=== PATIENT | female | born 1990 | race Two or more races ===

== ENCOUNTER 2018-10-31 03:34 | Day surgery (SDC) | payer SELFPAY ==
[2018-10-31] MEDS ORDERED: Sodium Chloride 0.9% 1,000 ML IV ONE (04:01)
[2018-10-31] MEDS ORDERED: Ondansetron 4 MG/2 ML SDV IVPUSH ONE (04:01)
--- NOTE | 2018-10-31 04:03 | EDM.PDOC ---
ED HPI GENERAL MEDICAL PROBLEM - General Chief Complaint: Abdominal Pain Stated Complaint: LOWER RIGHT ABDOMINAL PAIN Time Seen by Provider: 10/31/18 04:02 Source of Information: Reports: Patient - History of Present Illness INITIAL COMMENTS - FREE TEXT/NARRATIVE: HISTORY AND PHYSICAL: History of present illness: [Patient presents with abdominal pain since 10 PM right lower quadrant 7 out of 10 nonradiating associated with nausea no fever chills or sweats ] Review of systems: As per history of present illness and below otherwise all systems reviewed and negative. Past medical history: As per history of present illness and as reviewed below otherwise noncontributory. Surgical history: As per history of present illness and as reviewed below otherwise noncontributory. Social history: No reported history of drug or alcohol abuse. Family history: As per history of present illness and as reviewed below otherwise noncontributory. Physical exam: HEENT: Atraumatic, normocephalic, pupils reactive, negative for conjunctival pallor or scleral icterus, mucous membranes moist, throat clear, neck supple, nontender, trachea midline. Lungs: Clear to auscultation, breath sounds equal bilaterally, chest nontender. Heart: S1S2, regular, negative for clicks, rubs, or JVD. Abdomen: Soft, nondistended, nontender. Negative for masses or hepatosplenomegaly. Negative for costovertebral tenderness. Pelvis: Stable nontender. 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: Deferred. Rectal: Deferred. Extremities: Atraumatic, negative for cords or calf pain. Neurovascular unremarkable. Neuro: Awake, alert, oriented. Cranial nerves II through XII unremarkable. Cerebellum unremarkable. Motor and sensory unremarkable throughout. Exam nonfocal. Diagnostics: [CBC CMP UA hCG CT abdomen pelvis with contrast ] Therapeutics: [Trish saline Toradol 30 mg IV Morphine 2 mg IV mefoxin [address] Miller is consult to deal be in to see the patient Patient to be kept nothing by mouth ] Impression: [ abdominal pain ] Appendix 1 cm with no inflammatory change Definitive disposition and diagnosis as appropriate pending reevaluation and review of above. abdomen Pain Score (Numeric/FACES): 1 - Related Data Allergies Allergy/AdvReac Type Severity Reaction Status Date / Time No Known Allergies Allergy Verified 10/31/18 03:43 Home Meds: Home Meds . [No Known Home Meds] 10/31/18 [History] Past Medical History - Past Health History Medical/Surgical History: Denies Medical/Surgical History [employer] History: Reports: - Infectious Disease History Infectious Disease History: Reports: Chicken Pox Social & Family History - Family History Family Medical History: Noncontributory - Tobacco Use Smoking Status *Q: Never Smoker Second Hand Smoke Exposure: No - Caffeine Use Caffeine Use: Reports: None - Recreational Drug Use Recreational Drug Use: No ED ROS GENERAL - Review of Systems Review Of Systems: See Below ED EXAM, GENERAL - Physical Exam Exam: See Below Course - Vital Signs Last Recorded V/S: Last Vital Signs Temp 96.8 F 10/31/18 05:30 Pulse 77 10/31/18 05:30 Resp 18 10/31/18 05:30 BP 109/61 10/31/18 05:30 Pulse Ox 97 10/31/18 05:30 - Orders/Labs/Meds Orders: Active Orders 24 hr Category Date Time Status CULTURE BLOOD [BC] Stat Lab 10/31/18 04:13 Received CULTURE BLOOD [BC] Stat Lab 10/31/18 04:26 Received Sodium Chloride 0.9% [Normal Saline] 1,000 ml Med 10/31/18 05:45 Active IV STAT cefOXitin [Mefoxin in Dextrose,Iso-Osm 1 GM/50 ML] 1 gm Med 10/31/18 05:55 Active Premix Bag 1 bag IV ONETIME Blood Culture x2 Reflex Set [OM.PC] Stat Oth 10/31/18 04:01 Ordered Medication Orders Sodium Chloride (Normal Saline) 1,000 mls @ 125 mls/hr IV STAT LYNNE Last Admin: 10/31/18 06:01 Dose: 125 mls/hr Cefoxitin Sodium 1 gm/ Premix 50 mls @ 100 mls/hr IV ONETIME ONE Stop: 10/31/18 06:24 Last Admin: 10/31/18 06:02 Dose: 100 mls/hr Labs: Laboratory Tests 10/31/18 10/31/18 10/31/18 Range/Units 03:45 04:01 04:13 WBC 14.31 H (4.0-11.0) K/uL RBC 4.46 (4.30-5.90) M/uL Hgb 13.5 (12.0-16.0) g/dL Hct 39.5 (36.0-46.0) % MCV 88.6 (80.0-98.0) fL MCH 30.3 (27.0-32.0) pg MCHC 34.2 (31.0-37.0) g/dL RDW Std Deviation 42.1 (28.0-62.0) fl RDW Coeff of Daniella 13 (11.0-15.0) % Plt Count 221 (150-400) K/uL MPV 10.10 (7.40-12.00) fL Neut % (Auto) 82.9 H (48.0-80.0) % Lymph % (Auto) 10.5 L (16.0-40.0) % [place] % (Auto) 6.1 (0.0-15.0) % Eos % (Auto) 0.4 (0.0-7.0) % Baso % (Auto) 0.1 (0.0-1.5) % Neut # (Auto) 11.9 H (1.4-5.7) K/uL Lymph # (Auto) 1.5 (0.6-2.4) K/uL [place] # (Auto) 0.9 H (0.0-0.8) K/uL Eos # (Auto) 0.1 (0.0-0.7) K/uL Baso # (Auto) 0.0 (0.0-0.1) K/uL Nucleated RBC % 0.0 /100WBC Nucleated RBCs # 0 K/uL Sodium (136-145) mmol/L Potassium (3.5-5.1) mmol/L Chloride (98-107) mmol/L Carbon Dioxide (21.0-32.0) mmol/L BUN (7.0-18.0) mg/dL Creatinine (0.6-1.0) mg/dL Est Cr Clr Drug Dosing mL/min Estimated GFR (MDRD) ml/min Glucose (74-106) mg/dL Calcium (8.5-10.1) mg/dL Total Bilirubin (0.2-1.0) mg/dL AST (15-37) IU/L ALT (14-63) IU/L Alkaline Phosphatase (46-116) U/L Total Protein (6.4-8.2) g/dL Albumin (3.4-5.0) g/dL Globulin (2.6-4.0) g/dL Albumin/Globulin Ratio (0.9-1.6) Lipase (73-393) U/L Urine Color DARK YELLOW Urine Appearance SLT CLOUDY Urine pH 6.0 (5.0-8.0) Ur Specific [place] 1.025 (1.001-1.035) Urine Protein NEGATIVE (NEGATIVE) mg/dL Urine Glucose (UA) NEGATIVE (NEGATIVE) mg/dL Urine Ketones NEGATIVE (NEGATIVE) mg/dL Urine Occult Blood TRACE-INTACT H (NEGATIVE) Urine Nitrite NEGATIVE (NEGATIVE) Urine Bilirubin NEGATIVE (NEGATIVE) Urine Urobilinogen 0.2 (<2.0) EU/dL Ur Leukocyte Esterase SMALL H (NEGATIVE) Urine RBC 0-2 (0-2/HPF) Urine WBC 3-5 (0-5/HPF) Ur Epithelial Cells MODERATE (NONE-FEW) Urine Bacteria FEW (NEGATIVE) Urine HCG, Qual NEGATIVE (NEGATIVE) 10/31/18 Range/Units 04:13 WBC (4.0-11.0) K/uL RBC (4.30-5.90) M/uL Hgb (12.0-16.0) g/dL Hct (36.0-46.0) % MCV (80.0-98.0) fL MCH (27.0-32.0) pg MCHC (31.0-37.0) g/dL RDW Std Deviation (28.0-62.0) fl RDW Coeff of Daniella (11.0-15.0) % Plt Count (150-400) K/uL MPV (7.40-12.00) fL Neut % (Auto) (48.0-80.0) % Lymph % (Auto) (16.0-40.0) % [place] % (Auto) (0.0-15.0) % Eos % (Auto) (0.0-7.0) % Baso % (Auto) (0.0-1.5) % Neut # (Auto) (1.4-5.7) K/uL Lymph # (Auto) (0.6-2.4) K/uL [place] # (Auto) (0.0-0.8) K/uL Eos # (Auto) (0.0-0.7) K/uL Baso # (Auto) (0.0-0.1) K/uL Nucleated RBC % /100WBC Nucleated RBCs # K/uL Sodium 139 (136-145) mmol/L Potassium 3.6 (3.5-5.1) mmol/L Chloride 105 (98-107) mmol/L Carbon Dioxide 22.5 (21.0-32.0) mmol/L BUN 17 (7.0-18.0) mg/dL Creatinine 0.7 (0.6-1.0) mg/dL Est Cr Clr Drug Dosing 85.94 mL/min Estimated GFR (MDRD) > 60.0 ml/min Glucose 114 H (74-106) mg/dL Calcium 8.5 (8.5-10.1) mg/dL Total Bilirubin 0.7 (0.2-1.0) mg/dL AST 19 (15-37) IU/L ALT 48 (14-63) IU/L Alkaline Phosphatase 83 (46-116) U/L Total Protein 7.3 (6.4-8.2) g/dL Albumin 3.8 (3.4-5.0) g/dL Globulin 3.5 (2.6-4.0) g/dL Albumin/Globulin Ratio 1.1 (0.9-1.6) Lipase 201 (73-393) U/L Urine Color Urine Appearance Urine pH (5.0-8.0) Ur Specific [place] (1.001-1.035) Urine Protein (NEGATIVE) mg/dL Urine Glucose (UA) (NEGATIVE) mg/dL Urine Ketones (NEGATIVE) mg/dL Urine Occult Blood (NEGATIVE) Urine Nitrite (NEGATIVE) Urine Bilirubin (NEGATIVE) Urine Urobilinogen (<2.0) EU/dL Ur Leukocyte Esterase (NEGATIVE) Urine RBC (0-2/HPF) Urine WBC (0-5/HPF) Ur Epithelial Cells (NONE-FEW) Urine Bacteria (NEGATIVE) Urine HCG, Qual (NEGATIVE) Meds: Medications Generic Name Dose Route Start Last Admin Trade Name Freq PRN Reason Stop Dose Admin Sodium Chloride 1,000 mls @ 125 mls/hr 10/31/18 05:45 10/31/18 06:01 Normal Saline IV 125 mls/hr STAT LYNNE Administration Cefoxitin Sodium 1 gm/ Premix 50 mls @ 100 mls/hr 10/31/18 05:55 10/31/18 06: 02 IV 06/29/19 06:24 100 mls/hr ONETIME ONE Administration Discontinued Medications Generic Name Dose Route Start Last Admin Trade Name Tania PRN Reason Stop Dose Admin Sodium Chloride 1,000 mls @ 999 mls/hr 10/31/18 04:01 10/31/18 04:30 Normal Saline IV 10/31/18 05:01 999 mls/hr STAT ONE Administration Cefoxitin Sodium 1 gm/ Sodium 50 mls @ 100 mls/hr 10/31/18 05:39 Chloride IV 10/31/18 06:08 ONETIME ONE Iopamidol 100 ml 10/31/18 05:04 10/31/18 05:04 Isovue Multipack-370 (76%) IVPUSH 10/31/18 05:05 90 ml ONETIME STA Administration Ketorolac Tromethamine 30 mg 10/31/18 04:30 10/31/18 04:34 Toradol IVPUSH 10/31/18 04:31 30 mg ONETIME ONE Administration Ondansetron HCl 8 mg 10/31/18 04:01 10/31/18 04:31 Zofran IVPUSH 10/31/18 04:02 8 mg ONETIME ONE Administration Departure - Departure Time of Disposition: 06:25 Disposition: Still A Patient 30 Condition: Fair Clinical Impression: Abdominal pain - Discharge Information Referrals: PCP,None [Primary Care Provider] - Forms: ED Department Discharge - My Orders Last 24 Hours: My Active Orders 10/31/18 04:01 Blood Culture x2 Reflex Set [OM.PC] Stat 10/31/18 04:13 CULTURE BLOOD [BC] Stat 10/31/18 04:26 CULTURE BLOOD [BC] Stat 10/31/18 05:45 Sodium Chloride 0.9% [Normal Saline] 1,000 ml IV STAT 10/31/18 05:55 cefOXitin [Mefoxin in Dextrose,Iso-Osm 1 GM/50 ML] 1 gm Premix Bag 1 bag IV ONETIME - Assessment/Plan Last 24 Hours: My Active Orders 10/31/18 04:01 Blood Culture x2 Reflex Set [OM.PC] Stat 10/31/18 04:13 CULTURE BLOOD [BC] Stat 10/31/18 04:26 CULTURE BLOOD [BC] Stat 10/31/18 05:45 Sodium Chloride 0.9% [Normal Saline] 1,000 ml IV STAT 10/31/18 05:55 cefOXitin [Mefoxin in Dextrose,Iso-Osm 1 GM/50 ML] 1 gm Premix Bag 1 bag IV ONETIME
[2018-10-31] MEDS ORDERED: Ketorolac 30 MG/ML SDV IVPUSH ONE ×2 (04:30→11:43)
[2018-10-31 04:39] LABS: CHLORIDE,CL 105 mmol/L (98-107); SODIUM,NA 139 mmol/L (136-145)
[2018-10-31] MEDS ORDERED: Iopamidol 755 MG/ML 500 ML Multipack Bottle IVPUSH STA (05:04)
--- NOTE | 2018-10-31 05:28 | CT ---
INDICATION: Right lower quadrant pain TECHNIQUE: CT Abdomen and pelvis with i.v. contrast. Coronal and sagittal reformats were obtained. CONTRAST: 90 mL Isovue 370 COMPARISON: None FINDINGS: Lower chest: Unremarkable. Liver: Unremarkable. Spleen: Unremarkable. Pancreas: Unremarkable. Gallbladder: Multiple partially calcified gallstones are noted. Kidney: Excretion of contrast into the renal collecting systems and ureters are noted, which limits evaluation for the presence of stones. Both kidneys are normal in enhancement. Adrenal: Unremarkable. Bowel: Unremarkable. The appendix measures 1 cm in diameter and demonstrates moderate enhancement of the mucosa. No surrounding inflammatory changes or fluid collections are seen. Vascular: Unremarkable. Lymph: Unremarkable. Peritoneum: Unremarkable. No pneumoperitoneum is seen. There is a cystic lesion in the right ovary measuring 2.1 cm. Trace amount of ascites is present and is likely physiologic in origin. Pelvis: Unremarkable. Soft tissue: Unremarkable. Bone: Unremarkable for age. IMPRESSION: 1. The appendix measures 1 cm in diameter and demonstrates moderate enhancement of the mucosa. No surrounding inflammatory changes or fluid collections are seen. 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 Dictated by Bharathi Jain MD @ 10/31/2018 5:26:49 AM Please note that all CT scans at this facility use dose modulation, iterative reconstruction, and/or weight-based dosing when appropriate to reduce radiation dose to as low as reasonably achievable. Dictated by: Bharathi Jain MD @ 10/31/2018 05:26:58 (Electronically Signed)
[2018-10-31] MEDS ORDERED: Sodium Chloride 0.9% 1,000 ML IV SCH (05:45)
[2018-10-31] MEDS ORDERED: cefOXitin 1 GM in Premix Bag 1 BAG IV ONE ×2 (05:55→07:35)
[2018-10-31] MEDS ORDERED: Lactated Ringers 1,000 ML IV SCH ×2 (07:45→11:15)
--- NOTE | 2018-10-31 07:48 | PCM.CONS ---
H&P History of Present Illness - General Date of Service: 10/31/18 Admit Problem/Dx: Right lower quadrant pain Source of Information: Patient History Limitations: Reports: No Limitations - History of Present Illness Initial Comments - Free Text/Narative: Patient is a 28-year-old female who presented to the emergency room today complaining of right-sided abdominal pain. This began last night about 10:30 and did not get better. She has had similar episodes in the past, but never as acute as this. She has had some nausea, no vomiting. Denies fever or chills. No change in bowel habits. No bloody at home is ill. Symptom Onset Date: 10/30/18 Symptom Onset Time: 22:30 Duration of Symptoms: Reports: Hour(s): Location: Reports: Abdomen Quality: Reports: Ache, Pressure, Same as Previous Episode Severity: Mild Improves with: Reports: Rest Worsens with: Reports: Movement Context: Reports: Sick Contact Associated Symptoms: Reports: Loss of Appetite. Denies: Fever/Chills abdomen Pain Score (Numeric/FACES): 1 - Related Data Allergies/Adverse Reactions: Allergies Allergy/AdvReac Type Severity Reaction Status Date / Time No Known Allergies Allergy Verified 10/31/18 03:43 Home Medications: Home Meds . [No Known Home Meds] 10/31/18 [History] Past Medical History - Past Health History Medical/Surgical History: Denies Medical/Surgical History CTRS History: Reports: - Infectious Disease History Infectious Disease History: Reports: Chicken Pox Social & Family History - Family History Family Medical History: Noncontributory - Tobacco Use Smoking Status *Q: Never Smoker Second Hand Smoke Exposure: No - Caffeine Use Caffeine Use: Reports: None - Recreational Drug Use Recreational Drug Use: No H&P Review of Systems - Review of Systems: Review Of Systems: See Below General: Denies: Fever, Chills, Malaise, Weakness, Fatigue HEENT: Reports: No Symptoms Pulmonary: Denies: Shortness of Breath, Wheezing Cardiovascular: Denies: Chest Pain, Palpitations Gastrointestinal: Reports: Abdominal Pain, Anorexia, Flatus, Nausea. Denies: Black Stool, Bloody Stool, Constipation, Diarrhea, Decreased Appetite, Distension, Hematemesis, Hematochezia, Vomiting 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: Denies: Dysuria, Frequency, Burning, Pain, Urgency Musculoskeletal: Reports: No Symptoms Skin: Reports: No Symptoms Psychiatric: Reports: No Symptoms Neurological: Reports: No Symptoms Hematologic/Lymphatic: Reports: No Symptoms Immunologic: Reports: No Symptoms Exam - Exam Exam: See Below - Vital Signs Vital Signs: Last Vital Signs Temp 96.8 F 10/31/18 05:30 Pulse 77 10/31/18 05:30 Resp 18 10/31/18 05:30 BP 109/61 10/31/18 05:30 Pulse Ox 97 10/31/18 05:30 Weight: 141 lb 1.533 oz - Exam General: Alert, Oriented, Cooperative, Mild Distress HEENT: Conjunctiva Clear, Pupils Equal, Pupils Reactive. No: Scleral Icterus Neck: Supple, Trachea Midline Lungs: Clear to Auscultation, Normal Respiratory Effort Cardiovascular: Regular Rate, Regular Rhythm, Normal S1, Normal S2. No: Tachycardia GI/Abdominal Exam: Normal Bowel Sounds, Soft, No Distention, Rebound, Tender ( rlq). No: Guarding, Rigid, Mass (Female) Exam: Deferred Rectal (Female) Exam: Deferred Back Exam: Normal Inspection Extremities: Normal Inspection, Normal Range of Motion Peripheral Pulses: 4+: Posterior Tibial (L), Posterior Tibial (R), Dorsalis Pedis (L), Dorsalis Pedis (R) Skin: Warm, Dry, Intact Neurological: Cranial Nerves Intact, Reflexes Equal Bilateral Psychiatric: Alert, Normal Affect, Normal Mood - Patient Data Lab Results Last 24 hrs: Laboratory Results - last 24 hr 10/31/18 10/31/18 10/31/18 Range/Units 03:45 04:01 04:13 WBC 14.31 H (4.0-11.0) K/uL RBC 4.46 (4.30-5.90) M/uL Hgb 13.5 (12.0-16.0) g/dL Hct 39.5 (36.0-46.0) % MCV 88.6 (80.0-98.0) fL MCH 30.3 (27.0-32.0) pg MCHC 34.2 (31.0-37.0) g/dL RDW Std Deviation 42.1 (28.0-62.0) fl RDW Coeff of Daniella 13 (11.0-15.0) % Plt Count 221 (150-400) K/uL MPV 10.10 (7.40-12.00) fL Neut % (Auto) 82.9 H (48.0-80.0) % Lymph % (Auto) 10.5 L (16.0-40.0) % [place] % (Auto) 6.1 (0.0-15.0) % Eos % (Auto) 0.4 (0.0-7.0) % Baso % (Auto) 0.1 (0.0-1.5) % Neut # (Auto) 11.9 H (1.4-5.7) K/uL Lymph # (Auto) 1.5 (0.6-2.4) K/uL [place] # (Auto) 0.9 H (0.0-0.8) K/uL Eos # (Auto) 0.1 (0.0-0.7) K/uL Baso # (Auto) 0.0 (0.0-0.1) K/uL Nucleated RBC % 0.0 /100WBC Nucleated RBCs # 0 K/uL Sodium (136-145) mmol/L Potassium (3.5-5.1) mmol/L Chloride (98-107) mmol/L Carbon Dioxide (21.0-32.0) mmol/L BUN (7.0-18.0) mg/dL Creatinine (0.6-1.0) mg/dL Est Cr Clr Drug Dosing mL/min Estimated GFR (MDRD) ml/min Glucose (74-106) mg/dL Calcium (8.5-10.1) mg/dL Total Bilirubin (0.2-1.0) mg/dL AST (15-37) IU/L ALT (14-63) IU/L Alkaline Phosphatase (46-116) U/L Total Protein (6.4-8.2) g/dL Albumin (3.4-5.0) g/dL Globulin (2.6-4.0) g/dL Albumin/Globulin Ratio (0.9-1.6) Lipase (73-393) U/L Urine Color DARK YELLOW Urine Appearance SLT CLOUDY Urine pH 6.0 (5.0-8.0) Ur Specific [place] 1.025 (1.001-1.035) Urine Protein NEGATIVE (NEGATIVE) mg/dL Urine Glucose (UA) NEGATIVE (NEGATIVE) mg/dL Urine Ketones NEGATIVE (NEGATIVE) mg/dL Urine Occult Blood TRACE-INTACT H (NEGATIVE) Urine Nitrite NEGATIVE (NEGATIVE) Urine Bilirubin NEGATIVE (NEGATIVE) Urine Urobilinogen 0.2 (<2.0) EU/dL Ur Leukocyte Esterase SMALL H (NEGATIVE) Urine RBC 0-2 (0-2/HPF) Urine WBC 3-5 (0-5/HPF) Ur Epithelial Cells MODERATE (NONE-FEW) Urine Bacteria FEW (NEGATIVE) Urine HCG, Qual NEGATIVE (NEGATIVE) 10/31/18 Range/Units 04:13 WBC (4.0-11.0) K/uL RBC (4.30-5.90) M/uL Hgb (12.0-16.0) g/dL Hct (36.0-46.0) % MCV (80.0-98.0) fL MCH (27.0-32.0) pg MCHC (31.0-37.0) g/dL RDW Std Deviation (28.0-62.0) fl RDW Coeff of Daniella (11.0-15.0) % Plt Count (150-400) K/uL MPV (7.40-12.00) fL Neut % (Auto) (48.0-80.0) % Lymph % (Auto) (16.0-40.0) % [place] % (Auto) (0.0-15.0) % Eos % (Auto) (0.0-7.0) % Baso % (Auto) (0.0-1.5) % Neut # (Auto) (1.4-5.7) K/uL Lymph # (Auto) (0.6-2.4) K/uL [place] # (Auto) (0.0-0.8) K/uL Eos # (Auto) (0.0-0.7) K/uL Baso # (Auto) (0.0-0.1) K/uL Nucleated RBC % /100WBC Nucleated RBCs # K/uL Sodium 139 (136-145) mmol/L Potassium 3.6 (3.5-5.1) mmol/L Chloride 105 (98-107) mmol/L Carbon Dioxide 22.5 (21.0-32.0) mmol/L BUN 17 (7.0-18.0) mg/dL Creatinine 0.7 (0.6-1.0) mg/dL Est Cr Clr Drug Dosing 85.94 mL/min Estimated GFR (MDRD) > 60.0 ml/min Glucose 114 H (74-106) mg/dL Calcium 8.5 (8.5-10.1) mg/dL Total Bilirubin 0.7 (0.2-1.0) mg/dL AST 19 (15-37) IU/L ALT 48 (14-63) IU/L Alkaline Phosphatase 83 (46-116) U/L Total Protein 7.3 (6.4-8.2) g/dL Albumin 3.8 (3.4-5.0) g/dL Globulin 3.5 (2.6-4.0) g/dL Albumin/Globulin Ratio 1.1 (0.9-1.6) Lipase 201 (73-393) U/L Urine Color Urine Appearance Urine pH (5.0-8.0) Ur Specific [place] (1.001-1.035) Urine Protein (NEGATIVE) mg/dL Urine Glucose (UA) (NEGATIVE) mg/dL Urine Ketones (NEGATIVE) mg/dL Urine Occult Blood (NEGATIVE) Urine Nitrite (NEGATIVE) Urine Bilirubin (NEGATIVE) Urine Urobilinogen (<2.0) EU/dL Ur Leukocyte Esterase (NEGATIVE) Urine RBC (0-2/HPF) Urine WBC (0-5/HPF) Ur Epithelial Cells (NONE-FEW) Urine Bacteria (NEGATIVE) Urine HCG, Qual (NEGATIVE) Result Diagrams: 10/31/18 04:13 10/31/18 04:13 Consult PN Assessment/Plan (1) Abdominal pain SNOMED Code(s): 44017280 Code(s): R10.9 - UNSPECIFIED ABDOMINAL PAIN Current Visit: Yes Qualifiers: Abdominal location: right lower quadrant Qualified Code(s): R10.31 - Right lower quadrant pain Problem List Initiated/Reviewed/Updated: Yes My Orders Last 24 Hours: My Active Orders 10/31/18 07:35 cefOXitin [Mefoxin in Dextrose,Iso-Osm 1 GM/50 ML] 1 gm Premix Bag 1 bag IV ONETIME 10/31/18 07:42 Antiembolic Devices [RC] PER UNIT ROUTINE Insert Urinary Catheter [OM.PC] Timed Oxygen Therapy [RC] ASDIRECTED RT Incentive Spirometry [RC] Q1HWA Skin Preparation [RC] .PREOP Urinary Catheter Assessment [RC] ASDIRECTED Urinary Catheter Assessment [RC] ASDIRECTED Urinary Catheter Assessment [RC] ASDIRECTED Vital Signs [RC] PER UNIT ROUTINE Antiembolic Hose [OM.PC] Routine Resuscitation Status Routine 10/31/18 07:45 Lactated Ringers @ 125 MLS/HR(1000ml) Lactated Ringers [Ringers, Lactated] 1, 000 ml IV ASDIRECTED 10/31/18 Breakfast Nothing Per Oral Diet [DIET] Plan: Early appendicitis, possible chronic appendicitis. Laparoscopic appendectomy, possible open appendectomy. Both operative procedures, along with the risks, including, but not limited to, bleeding, infection, pneumonia, deep venous thrombosis, pulmonary emboli, myocardial infarction, and adjacent organ injury have been reviewed with the patient who voices understanding, offers no questions and agrees to proceed.
[2018-10-31] MEDS ORDERED: Ondansetron 4 MG/2 ML SDV ONE (08:42)
[2018-10-31] MEDS ORDERED: Midazolam 1 MG/ML 2 ML SDV ONE (08:42)
[2018-10-31] MEDS ORDERED: Lidocaine 2% 5 ML SDV ONE (08:42)
[2018-10-31] MEDS ORDERED: Rocuronium 100 MG/10 ML MDV ONE (08:42)
[2018-10-31] MEDS ORDERED: Propofol 200 MG/20 ML SDV ONE (08:42)
[2018-10-31] MEDS ORDERED: Succinylcholine 200 MG/10 ML MDV ONE (08:42)
[2018-10-31] MEDS ORDERED: fentaNYL 250 MCG/5 ML SDV ONE (08:43)
[2018-10-31] MEDS ORDERED: Bupivacaine 0.5% 10 ML SDV ONE (09:27)
[2018-10-31] MEDS ORDERED: ceFAZolin 1 GM Vial ONE (09:27)
--- NOTE | 2018-10-31 09:39 | PCM.PREANE ---
Preanesthetic Assessment - Anesthesia/Transfusion/Family Hx Anesthesia History: Prior Anesthesia Without Reaction Family History of Anesthesia Reaction: No Transfusion History: No Prior Transfusion(s) - Review of Systems General: No Symptoms Pulmonary: No Symptoms Cardiovascular: No Symptoms Gastrointestinal: No Symptoms Neurological: No Symptoms Other: Reports: None - Physical Assessment O2 Sat by Pulse Oximetry: 97 Respiratory Rate: 18 Vital Signs: Last Vital Signs Temp 96.8 F 10/31/18 05:30 Pulse 77 10/31/18 05:30 Resp 18 10/31/18 05:30 BP 109/61 10/31/18 05:30 Pulse Ox 97 10/31/18 05:30 Height: 4 ft 9.09 in Weight: 64 kg ASA Class: 2E Mental Status: Alert & Oriented x3 Airway Class: Mallampati = 2 Dentition: Reports: Normal Dentition Thyro-Mental Finger Breadths: 3 Mouth Opening Finger Breadths: 3 ROM/Head Extension: Full Lungs: Clear to Auscultation, Normal Respiratory Effort Cardiovascular: Regular Rate, Regular Rhythm - Lab Values: Laboratory Last Values WBC 14.31 K/uL (4.0-11.0) H 10/31/18 04:13 RBC 4.46 M/uL (4.30-5.90) 10/31/18 04:13 Hgb 13.5 g/dL (12.0-16.0) 10/31/18 04:13 Hct 39.5 % (36.0-46.0) 10/31/18 04:13 MCV 88.6 fL (80.0-98.0) 10/31/18 04:13 MCH 30.3 pg (27.0-32.0) 10/31/18 04:13 MCHC 34.2 g/dL (31.0-37.0) 10/31/18 04:13 RDW Std Deviation 42.1 fl (28.0-62.0) 10/31/18 04:13 RDW Coeff of Daniella 13 % (11.0-15.0) 10/31/18 04:13 Plt Count 221 K/uL (150-400) 10/31/18 04:13 MPV 10.10 fL (7.40-12.00) 10/31/18 04:13 Neut % (Auto) 82.9 % (48.0-80.0) H 10/31/18 04:13 Lymph % (Auto) 10.5 % (16.0-40.0) L 10/31/18 04:13 M[place]ulloch % (Auto) 6.1 % (0.0-15.0) 10/31/18 04:13 Eos % (Auto) 0.4 % (0.0-7.0) 10/31/18 04:13 Baso % (Auto) 0.1 % (0.0-1.5) 10/31/18 04:13 Neut # (Auto) 11.9 K/uL (1.4-5.7) H 10/31/18 04:13 Lymph # (Auto) 1.5 K/uL (0.6-2.4) 10/31/18 04:13 [place]och # (Auto) 0.9 K/uL (0.0-0.8) H 10/31/18 04:13 Eos # (Auto) 0.1 K/uL (0.0-0.7) 10/31/18 04:13 Baso # (Auto) 0.0 K/uL (0.0-0.1) 10/31/18 04:13 Nucleated RBC % 0.0 /100WBC 10/31/18 04:13 Nucleated RBCs # 0 K/uL 10/31/18 04:13 Sodium 139 mmol/L (136-145) 10/31/18 04:13 Potassium 3.6 mmol/L (3.5-5.1) 10/31/18 04:13 Chloride 105 mmol/L (98-107) 10/31/18 04:13 Carbon Dioxide 22.5 mmol/L (21.0-32.0) 10/31/18 04:13 BUN 17 mg/dL (7.0-18.0) 10/31/18 04:13 Creatinine 0.7 mg/dL (0.6-1.0) 10/31/18 04:13 Est Cr Clr Drug Dosing 85.94 mL/min 10/31/18 04:13 Estimated GFR (MDRD) > 60.0 ml/min 10/31/18 04:13 Glucose 114 mg/dL (74-106) H 10/31/18 04:13 Calcium 8.5 mg/dL (8.5-10.1) 10/31/18 04:13 Total Bilirubin 0.7 mg/dL (0.2-1.0) 10/31/18 04:13 AST 19 IU/L (15-37) 10/31/18 04:13 ALT 48 IU/L (14-63) 10/31/18 04:13 Alkaline Phosphatase 83 U/L (46-116) 10/31/18 04:13 Total Protein 7.3 g/dL (6.4-8.2) 10/31/18 04:13 Albumin 3.8 g/dL (3.4-5.0) 10/31/18 04:13 Globulin 3.5 g/dL (2.6-4.0) 10/31/18 04:13 Albumin/Globulin Ratio 1.1 (0.9-1.6) 10/31/18 04:13 Lipase 201 U/L (73-393) 10/31/18 04:13 Urine Color DARK YELLOW 10/31/18 03:45 Urine Appearance SLT CLOUDY 10/31/18 03:45 Urine pH 6.0 (5.0-8.0) 10/31/18 03:45 Ur Specific [place] 1.025 (1.001-1.035) 10/31/18 03:45 Urine Protein NEGATIVE mg/dL (NEGATIVE) 10/31/18 03:45 Urine Glucose (UA) NEGATIVE mg/dL (NEGATIVE) 10/31/18 03:45 Urine Ketones NEGATIVE mg/dL (NEGATIVE) 10/31/18 03:45 Urine Occult Blood TRACE-INTACT (NEGATIVE) H 10/31/18 03:45 Urine Nitrite NEGATIVE (NEGATIVE) 10/31/18 03:45 Urine Bilirubin NEGATIVE (NEGATIVE) 10/31/18 03:45 Urine Urobilinogen 0.2 EU/dL (<2.0) 10/31/18 03:45 Ur Leukocyte Esterase SMALL (NEGATIVE) H 10/31/18 03:45 Urine RBC 0-2 (0-2/HPF) 10/31/18 03:45 Urine WBC 3-5 (0-5/HPF) 10/31/18 03:45 Ur Epithelial Cells MODERATE (NONE-FEW) 10/31/18 03:45 Urine Bacteria FEW (NEGATIVE) 10/31/18 03:45 Urine HCG, Qual NEGATIVE (NEGATIVE) 10/31/18 04:01 - Allergies Allergies/Adverse Reactions: Allergies Allergy/AdvReac Type Severity Reaction Status Date / Time No Known Allergies Allergy Verified 10/31/18 03:43 - Acknowledgements Anesthesia Type Planned: General Anesthesia Pt an Appropriate Candidate for the Planned Anesthesia: Yes Alternatives and Risks of Anesthesia Discussed w Pt/Guardian: Yes Pt/Guardian Understands and Agrees with Anesthesia Plan: Yes PreAnesthesia Questionnaire - Past Health History Medical/Surgical History: Denies Medical/Surgical History HEENT History: Reports: None Cardiovascular History: Reports: None Respiratory History: Reports: None Gastrointestinal History: Reports: None 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 [No Known Home Meds] 10/31/18 [History] - CURRENT (IN HOUSE) MEDS Current Meds: Current Medications Lactated Ringer's (Ringers, Lactated) 1,000 mls @ 125 mls/hr IV ASDIRECTED LYNNE Discontinued Medications Bupivacaine HCl (Sensorcaine-Mpf 0.5%) Confirm Administered Dose 10 ml .ROUTE .STK-MED ONE Stop: 10/31/18 09:28 Cefazolin Sodium (Ancef) Confirm Administered Dose 1 gm .ROUTE .STK-MED ONE Stop: 10/31/18 09:28 Fentanyl (Sublimaze) Confirm Administered Dose 250 mcg .ROUTE .STK-MED ONE Stop: 10/31/18 08:44 Sodium Chloride (Normal Saline) 1,000 mls @ 999 mls/hr IV STAT ONE Stop: 10/31/18 05:01 Last Admin: 10/31/18 04:30 Dose: 999 mls/hr Cefoxitin Sodium 1 gm/ Sodium (Chloride) 50 mls @ 100 mls/hr IV ONETIME ONE Stop: 10/31/18 06:08 Last Admin: 10/31/18 06:34 Dose: Not Given Sodium Chloride (Normal Saline) 1,000 mls @ 125 mls/hr IV STAT LYNNE Last Admin: 10/31/18 06:01 Dose: 125 mls/hr Cefoxitin Sodium 1 gm/ Premix 50 mls @ 100 mls/hr IV ONETIME ONE Stop: 10/31/18 06:24 Last Admin: 10/31/18 06:02 Dose: 100 mls/hr Cefoxitin Sodium 1 gm/ Premix 50 mls @ 100 mls/hr IV ONETIME ONE Stop: 10/31/18 08:04 Last Admin: 10/31/18 07:42 Dose: 100 mls/hr Iopamidol (Isovue Multipack-370 (76%)) 100 ml IVPUSH ONETIME STA Stop: 10/31/18 05:05 Last Admin: 10/31/18 05:04 Dose: 90 ml Ketorolac Tromethamine (Toradol) 30 mg IVPUSH ONETIME ONE Stop: 10/31/18 04:31 Last Admin: 10/31/18 04:34 Dose: 30 mg Lidocaine (Xylocaine-Mpf 2%) Confirm Administered Dose 5 ml .ROUTE .STK-MED ONE Stop: 10/31/18 08:43 Midazolam HCl (Versed 1 Mg/Ml) Confirm Administered Dose 2 mg .ROUTE .STK-MED ONE Stop: 10/31/18 08:43 Ondansetron HCl (Zofran) 8 mg IVPUSH ONETIME ONE Stop: 10/31/18 04:02 Last Admin: 10/31/18 04:31 Dose: 8 mg Ondansetron HCl (Zofran) Confirm Administered Dose 4 mg .ROUTE .STK-MED ONE Stop: 10/31/18 08:43 Propofol (Diprivan 20 Ml) Confirm Administered Dose 200 mg .ROUTE .STK-MED ONE Stop: 10/31/18 08:43 Rocuronium Newell (Zemuron) Confirm Administered Dose 100 mg .ROUTE .STK-MED ONE Stop: 10/31/18 08:43 Succinylcholine Chloride (Quelicin) Confirm Administered Dose 200 mg .ROUTE .STK -MED ONE Stop: 10/31/18 08:43
[2018-10-31] MEDS ORDERED: ePHEDrine 50 MG/ML SDV ONE (10:31)
[2018-10-31] MEDS ORDERED: Glycopyrrolate 0.2 MG/ML SDV ONE ×3 (10:33→12:12)
[2018-10-31] MEDS ORDERED: Naloxone 0.4 MG/ML Syringe IVPUSH PRN (10:52)
[2018-10-31] MEDS ORDERED: Atropine 0.1 MG/ML 10 ML Syringe IVPUSH PRN ×2 (10:52)
[2018-10-31] MEDS ORDERED: 50% Dextrose in Water 50 ML Syringe IVPUSH PRN (10:52)
[2018-10-31] MEDS ORDERED: EPINEPHrine 1:10,000 1 MG/10 ML Syringe IVPUSH PRN (10:52)
[2018-10-31] MEDS ORDERED: Albuterol 0.083% 2.5 MG/3 ML Neb Soln NEB PRN (10:52)
[2018-10-31] MEDS ORDERED: Neostigmine Methylsulfate 1 MG/ML 5 ML Syringe ONE (10:55)
[2018-10-31] MEDS ORDERED: Morphine 4 MG/ML Syringe IVPUSH PRN (11:15)
[2018-10-31] MEDS ORDERED: Ondansetron 4 MG/2 ML SDV IVPUSH PRN (11:15)
[2018-10-31] MEDS ORDERED: Acetaminophen/HYDROcodone 325-5 MG Tab PO PRN (11:15)
[2018-10-31] MEDS ORDERED: Acetaminophen 1,000 MG in Premix Bag 1 BAG IV ONE (11:18)
--- NOTE | 2018-10-31 11:18 | PCM.OPNOTE ---
- General Post-Op/Procedure Note Date of Surgery/Procedure: 10/31/18 Operative Procedure(s): Laparoscopic appendectomy Pre Op Diagnosis: Acute abdomen Post-Op Diagnosis: Acute nonruptured appendicitis Anesthesia Technique: General ET Tube (ASA IIE) Primary Surgeon: Eugene Miller Fluid Replacement, Intraop: 800 Output, Urine Amount: 275 EBL in mLs: 10 Condition: Fair Free Text/Narrative:: DICTATION 311876 CPT CODE 65439
[2018-10-31] MEDS: fentaNYL 100 MCG/2 ML SDV IVPUSH PRN ×2 (11:20→11:25)
[2018-10-31] MEDS ORDERED: Ketorolac 30 MG/ML SDV ONE (11:27)
--- NOTE | 2018-10-31 11:45 | PCM.POSTAN ---
POST ANESTHESIA ASSESSMENT - MENTAL STATUS Mental Status: Alert, Oriented - VITAL SIGNS Pulse Rate: 70 SaO2: 98 Resp Rate: 12 Blood Pressure: 99/62 - RESPIRATORY Respiratory Status: Respiratory Rate WNL, Airway Patent, O2 Saturation Stable - CARDIOVASCULAR CV Status: Pulse Rate WNL, Blood Pressure Stable - GASTROINTESTINAL GI Status: No Symptoms - PAIN Pain Score: 2 - POST OP HYDRATION Hydration Status: Adequate & Stable
[2018-10-31] MEDS: cefOXitin 1 GM in Premix Bag 1 BAG IV SCH ×2 (12:21→17:18)
--- NOTE | 2018-10-31 12:50 | OR ---
SURGEON: Eugene Miller M.D. DATE OF PROCEDURE: 10/31/2018 OPERATION PERFORMED: Laparoscopic appendectomy. PRIMARY SURGEON: Eugene Miller MD. ANESTHESIA: General endotracheal. ASA CLASSIFICATION: IIE. PREOPERATIVE DIAGNOSIS: Acute abdomen. POSTOPERATIVE DIAGNOSIS: Acute nonruptured appendicitis. ESTIMATED BLOOD LOSS: 10 mL. INTRAOPERATIVE FLUID REPLACEMENT: 800 mL of crystalloid. INTRAOPERATIVE URINARY OUTPUT: 275 mL. DESCRIPTION OF PROCEDURE: The patient was taken to the operating room and placed on the operating table in the supine position. Time-out was called for appropriate identification of the patient and procedure. Thigh-high TEDs and sequential compression boots were placed. Following satisfactory attainment of general endotracheal anesthesia, a Friend catheter was placed in the patient's urinary bladder. The abdomen was prepped with DuraPrep solution and sterile drapes were applied. The skin just above the umbilicus was infiltrated with 0.5% Marcaine solution. Skin incision was made and deepened through the subcutaneous tissue, obtaining hemostasis with the use of electrocautery. The Veress needle was introduced into the peritoneal cavity. Saline drop test was positive. Carbon dioxide pneumoperitoneum was established with the relief set at 13 cm of water. Once a satisfactory pneumoperitoneum was established, 5 mm camera and port were placed through the supraumbilical incision. The patient was now positioned with her head down and rolled to the left. Under camera vision, 12 mm suprapubic and 5 mm left lower quadrant ports were placed. Each incision had preemptively been infiltrated with 0.5% Marcaine solution. The appendix was grasped and the mesoappendix was taken down with a Harmonic scalpel. The base of the appendix was doubly ligated with 0 PDS endo-loops. The appendix was then transected with the Harmonic scalpel and promptly placed in an Endo Catch. The Endo Catch containing appendix was left in situ while the right lower quadrant was irrigated with sterile saline solution. No purulent material was noted. No bleeding was noted. The Endo Catch containing appendix was delivered through the 12 mm port. The peritoneal cavity was again inspected. No bleeding was noted. There was no purulent material. Under camera vision, the 12 mm suprapubic and 5 mm left lower quadrant ports were removed and finally the supraumbilical camera and port were removed. Wounds were inspected for hemostasis and bleeding sites were electrocoagulated. The supraumbilical and suprapubic incisions were closed in 2 layers, approximating the subcutaneous tissue with 3-0 Vicryl and skin with subcuticular 4-0 Monocryl. The left lower quadrant incision was closed with a subcuticular 3-0 Vicryl. All incisions were Steri-Stripped and dressed with sterile Tegaderm pads. Sponge, needle, and instrument counts were all correct. Friend catheter was removed prior to emergence from anesthesia. Following emergence from anesthesia and extubation, the patient was taken to recovery room in stable condition. JOSIE QUINTANILLA /[id number]
--- NOTE | 2018-10-31 17:16 | PCM48HPAN ---
Post Anesthesia Note - EVALUATION WITHIN 48HRS OF ANESTHETIC Vital Signs in Normal Range: Yes Patient Participated in Evaluation: Yes Respiratory Function Stable: Yes Airway Patent: Yes Cardiovascular Function Stable: Yes Hydration Status Stable: Yes Pain Control Satisfactory: Yes Nausea and Vomiting Control Satisfactory: Yes Mental Status Recovered: Yes Pulse Rate: 72 SaO2: 100 Resp Rate: 14 Blood Pressure: 105/65
== END 2018-10-31 18:12 | disposition home or self-care (01) ==
LOC: MW.ED 03:34 → MW.SDS 07:38 → MW.MS 11:20 → MW.SDS 18:12
PROVIDERS: ATTEND Surgery
DX: K35.80 Unspecified acute appendicitis (principal)
CPT/HCPCS: 36415; 44970; 74177; 80053; 81001; 81025; 83690; 85025; 87040; 96361; 96365; 96366; 96375; 99285; A4217; A9270; J0131; J0330; J0694; J1885; J2001; J2250; J2405; J2704; J3010; J3490; J7040; Q9967; J0690

== ENCOUNTER 2018-11-01 10:19 | Emergency (ER) | payer SELFPAY ==
[2018-11-01] MEDS ORDERED: Morphine 2 MG/ML Syringe IVPUSH ONE (10:28)
[2018-11-01] MEDS ORDERED: Ondansetron 4 MG/2 ML SDV IVPUSH ONE (10:28)
[2018-11-01] MEDS ORDERED: Sodium Chloride 0.9% 1,000 ML IV ONE (10:28)
[2018-11-01] MEDS ORDERED: Ondansetron 4 MG/2 ML SDV ONE (10:36)
[2018-11-01] MEDS ORDERED: Morphine 2 MG/ML Syringe ONE (10:36)
--- NOTE | 2018-11-01 10:42 | EDM.PDOC ---
ED HPI GENERAL MEDICAL PROBLEM - General Chief Complaint: Abdominal Pain Stated Complaint: ABD PAIN/VOMITING/BLOATING Time Seen by Provider: 11/01/18 10:25 Source of Information: Reports: Patient History Limitations: Reports: No Limitations - History of Present Illness INITIAL COMMENTS - FREE TEXT/NARRATIVE: HISTORY AND PHYSICAL: History of present illness: Patient is a 28-year-old female who presents to the emergency room with complaints of generalized abdominal pain post appendectomy. Patient presented to the emergency room yesterday with right lower quadrant pain and was taken to day surgery for an appendectomy. She reports since surgery she has had generalized abdominal pain, bloating and nausea/vomiting. She was given prescription pain medication and encouraged to ambulate. She states she has been taking the prescribed pain medication but has not found much relief. Describes the pain as sharp and radiates into her right shoulder. Patient denies any fever, chills, headache, change in vision, syncope or near syncope. Denies any chest pain, back pain, shortness of breath or cough. Denies any diarrhea, constipation or dysuria. Has not noted any blood in urine or stool. Patient has been eating and drinking appropriately. Review of systems: As per history of present illness and below otherwise all systems reviewed and negative. Past medical history: As per history of present illness and as reviewed below otherwise noncontributory. Surgical history: As per history of present illness and as reviewed below otherwise noncontributory. Social history: See social history for further information Family history: As per history of present illness and as reviewed below otherwise noncontributory. Physical exam: General: Well-developed and well-nourished 28-year-old female. Alert and oriented. Nontoxic appearing and in no acute distress. HEENT: Atraumatic, normocephalic, pupils equal and reactive bilaterally, negative for conjunctival pallor or scleral icterus, mucous membranes moist, TMs normal bilaterally, throat clear, neck supple, nontender, trachea midline. No drooling or trismus noted. No meningeal signs. No hot potato voice noted. Lungs: Clear to auscultation, breath sounds equal bilaterally, chest nontender. Heart: S1S2, regular rate and rhythm without overt murmur Abdomen: Soft, nondistended, diffuse nonspecific tenderness. Negative for masses or hepatosplenomegaly. Negative for costovertebral tenderness. Pelvis: Stable nontender. 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: Deferred. Rectal: Deferred. Skin: Postoperative stab sites are intact and free of erythema. Intact, warm, dry. No lesions or rashes noted. Extremities: Atraumatic, moves all extremities per self without difficulty or deficits, negative for cords or calf pain. Neurovascular unremarkable. Neuro: Awake, alert, oriented. Cranial nerves II through XII unremarkable. Cerebellum unremarkable. Motor and sensory unremarkable throughout. Exam nonfocal. Notes: Lab work is unremarkable. No significant findings in the CT of the abdomen or pelvis. Patient is resting comfortably in her room and is currently improved since IV fluids and medication. All findings were shared with the patient and family members at bedside. Reassurance and supportive care measures were reviewed and discussed. She reports that she was given a limited amount of her pain medication and does request a few more tablets to get her through until she can follow up with the general surgeon. Prescription sent and education given. Voices understanding and is agreeable to plan of care. Denies any further questions or concerns at this time. Diagnostics: CBC, CMP, UA, CT abdomen and pelvis Therapeutics: IV fluid, morphine, Zofran Prescription: Zofran (#10) [place] (#15) Impression: Postoperative abdominal pain Plan: 1. Continue taking your prescribed pain medication as needed and as directed. 2. Continue ambulating. You may want to take a stool softener to prevent constipation. 3. Follow-up with your general surgeon as you have arranged. Return to the ED as needed and as discussed. Definitive disposition and diagnosis as appropriate pending reevaluation and review of above. Right Lower Abdomen Pain Score (Numeric/FACES): 9 - Related Data Allergies Allergy/AdvReac Type Severity Reaction Status Date / Time No Known Allergies Allergy Verified 11/01/18 10:47 Home Meds: Home Meds Acetaminophen/HYDROcodone [[place] 325-5 MG] 1 tab PO Q4H #15 tablet 11/01/18 [Rx] Ondansetron HCl [Zofran] 4 mg PO Q8HR PRN #10 tablet 11/01/18 [Rx] Past Medical History - Past Health History Medical/Surgical History: Denies Medical/Surgical History HEENT History: Reports: None Cardiovascular History: Reports: None Respiratory History: Reports: None Gastrointestinal History: Reports: None 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 History: Reports: None 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: Musculoskeletal History: Reports: None Neurological History: Reports: None Psychiatric History: Reports: None Endocrine/Metabolic History: Reports: Obesity/BMI 30+ Hematologic History: Reports: None Immunologic History: Reports: None Oncologic (Cancer) History: Reports: None Dermatologic History: Reports: None - Infectious Disease History Infectious Disease History: Reports: Chicken Pox Social & Family History - Family History Family Medical History: Noncontributory - Caffeine Use Caffeine Use: Reports: None ED ROS GENERAL - Review of Systems Review Of Systems: ROS reveals no pertinent complaints other than HPI. ED EXAM, GI/ABD - Physical Exam Exam: See Below (See dictation) Course - Vital Signs Last Recorded V/S: Last Vital Signs Temp 98.2 F 11/01/18 10:29 Pulse 98 11/01/18 10:29 Resp 18 11/01/18 10:29 BP 115/69 11/01/18 10:29 Pulse Ox 95 11/01/18 10:29 - Orders/Labs/Meds Orders: Active Orders 24 hr Category Date Time Status UA RFX CORBIN AND CULT IF INDIC [URIN] Stat Lab 11/01/18 10:28 Ordered Labs: Laboratory Tests 11/01/18 11/01/18 Range/Units 10:46 10:46 WBC 9.80 (4.0-11.0) K/uL RBC 4.25 L (4.30-5.90) M/uL Hgb 13.0 (12.0-16.0) g/dL Hct 38.2 (36.0-46.0) % MCV 89.9 (80.0-98.0) fL MCH 30.6 (27.0-32.0) pg MCHC 34.0 (31.0-37.0) g/dL RDW Std Deviation 43.6 (28.0-62.0) fl RDW Coeff of Daniella 13 (11.0-15.0) % Plt Count 212 (150-400) K/uL MPV 10.20 (7.40-12.00) fL Neut % (Auto) 75.1 (48.0-80.0) % Lymph % (Auto) 17.2 (16.0-40.0) % [place] % (Auto) 7.3 (0.0-15.0) % Eos % (Auto) 0.3 (0.0-7.0) % Baso % (Auto) 0.1 (0.0-1.5) % Neut # (Auto) 7.4 H (1.4-5.7) K/uL Lymph # (Auto) 1.7 (0.6-2.4) K/uL [place] # (Auto) 0.7 (0.0-0.8) K/uL Eos # (Auto) 0.0 (0.0-0.7) K/uL Baso # (Auto) 0.0 (0.0-0.1) K/uL Nucleated RBC % 0.0 /100WBC Nucleated RBCs # 0 K/uL Sodium 138 (136-145) mmol/L Potassium 3.7 (3.5-5.1) mmol/L Chloride 107 (98-107) mmol/L Carbon Dioxide 22.9 (21.0-32.0) mmol/L BUN 5 L (7.0-18.0) mg/dL Creatinine 0.7 (0.6-1.0) mg/dL Est Cr Clr Drug Dosing 85.94 mL/min Estimated GFR (MDRD) > 60.0 ml/min Glucose 106 (74-106) mg/dL Calcium 8.3 L (8.5-10.1) mg/dL Total Bilirubin 0.7 (0.2-1.0) mg/dL AST 18 (15-37) IU/L ALT 34 (14-63) IU/L Alkaline Phosphatase 76 (46-116) U/L Total Protein 6.9 (6.4-8.2) g/dL Albumin 3.5 (3.4-5.0) g/dL Globulin 3.4 (2.6-4.0) g/dL Albumin/Globulin Ratio 1.0 (0.9-1.6) Meds: Medications Discontinued Medications Generic Name Dose Route Start Last Admin Trade Name Freq PRN Reason Stop Dose Admin Sodium Chloride 1,000 mls @ 999 mls/hr 11/01/18 10:28 11/01/18 10:43 Normal Saline IV 11/01/18 11:28 999 mls/hr STAT ONE Administration Iopamidol 78 ml 11/01/18 11:55 11/01/18 11:56 Isovue Multipack-370 (76%) IVPUSH 11/01/18 11:56 78 ml ONETIME STA Administration Morphine Sulfate 2 mg 11/01/18 10:28 11/01/18 10:43 Morphine IVPUSH 11/01/18 10:29 2 mg ONETIME ONE Administration Morphine Sulfate Confirm 11/01/18 10:36 Morphine Administered 11/01/18 10:37 Dose 2 mg .ROUTE .STK-MED ONE Ondansetron HCl 4 mg 11/01/18 10:28 11/01/18 10:43 Zofran IVPUSH 11/01/18 10:29 4 mg ONETIME ONE Administration Ondansetron HCl Confirm 11/01/18 10:36 Zofran Administered 11/01/18 10:37 Dose 4 mg .ROUTE .STK-MED ONE Departure - Departure Time of Disposition: 12:39 Disposition: Home, Self-Care 01 Clinical Impression: Postoperative abdominal pain - Discharge Information Prescriptions: Ondansetron HCl [Zofran] 4 mg PO Q8HR PRN #10 tablet PRN Reason: Nausea Acetaminophen/HYDROcodone [[place] 325-5 MG] 1 tab PO Q4H #15 tablet Instructions: Laparoscopic Appendectomy, Adult, Care After, [id number] Referrals: PCP,None [Primary Care Provider] - Forms: ED Department Discharge Additional Instructions: The following information is given to patients seen in the emergency department who are being discharged to home. This information is to outline your options for follow-up care. We provide all patients seen in our emergency department with a follow-up referral. The need for follow-up, as well as the timing and circumstances, are variable depending upon the specifics of your emergency department visit. If you don't have a primary care physician on staff, we will provide you with a referral. We always advise you to contact your personal physician following an emergency department visit to inform them of the circumstance of the visit and for follow-up with them and/or the need for any referrals to a consulting specialist. The emergency department will also refer you to a specialist when appropriate. This referral assures that you have the opportunity for follow-up care with a specialist. All of these measure are taken in an effort to provide you with optimal care, which includes your follow-up. Under all circumstances we always encourage you to contact your private physician who remains a resource for coordinating your care. When calling for follow-up care, please make the office aware that this follow-up is from your recent emergency room visit. If for any reason you are refused follow-up, please contact the [facility] Emergency Department at and asked to speak to the emergency department charge nurse. [facility] [address] [place] [address] [facility] [address] [place] [id number] 1. Continue taking your prescribed pain medication as needed and as directed. 2. Continue ambulating. Gentle heat to the area as discussed. You may want to take a stool softener to prevent constipation. 3. Follow-up with your general surgeon as you have arranged. Return to the ED as needed and as discussed. - My Orders Last 24 Hours: My Active Orders 11/01/18 10:28 UA RFX CORBIN AND CULT IF INDIC [URIN] Stat - Assessment/Plan Last 24 Hours: My Active Orders 11/01/18 10:28 UA RFX CORBIN AND CULT IF INDIC [URIN] Stat
[2018-11-01 11:10] LABS: CHLORIDE,CL 107 mmol/L (98-107); SODIUM,NA 138 mmol/L (136-145)
[2018-11-01] MEDS ORDERED: Iopamidol 755 MG/ML 500 ML Multipack Bottle IVPUSH STA (11:55)
--- NOTE | 2018-11-01 12:32 | CT ---
INDICATION: ABDOMINAL PIAN. APPENDECTOMY YESTERDAY AND NOW HAVING PAIN HISTORY: Abdominal pain. Recent appendectomy. COMPARISON: CT of the abdomen and pelvis 10/31/2018. TECHNIQUE: CT of the abdomen and pelvis. 78 cc of [id number] IV. Coronal/sagittal reconstruction images. FINDINGS: Lung bases: There is no pleural or pericardial effusion. There is bibasilar dependent atelectasis. There is no acute airspace disease or basilar pneumothorax. Abdomen/pelvis: Cholelithiasis and sludge. No right upper quadrant inflammatory changes. Pneumoperitoneum, which is expected given recent appendectomy. No solid hepatic mass. Normal hepatic morphology. Normal caliber common bile duct. There is no pancreatic mass, pancreatic duct dilation, or glandular atrophy. Symmetric nephrograms. There is no solid renal mass. There is no perinephric fluid collection. The spleen size is normal. There is a small amount of free fluid in the pelvis. There is no drainable fluid collection. There is no adnexal mass. There is no pneumatosis. There is no portal venous gas. There is no evidence of a small bowel or colonic obstruction. Minimal fat stranding is present in the retro cecal fat, compatible with recent appendectomy. There is no hemoperitoneum. There is no adenopathy by size criteria in the pelvis, retroperitoneum, or gastrohepatic ligament. The bone windows demonstrate a sclerotic lesion present in the right iliac bone, which may represent a benign bone island. This measures 8 mm in dimension. Mild sclerosis at the right SI joint. No suspicious bone lesion is seen. IMPRESSION: 1. Recent appendectomy. 2. Pneumoperitoneum, which is expected given the recent surgical procedure. 3. There is no postoperative hematoma or evidence for a bowel injury. 4. Small amount of free fluid in the pelvis, with follicular cysts in the adnexa. These are considered physiologic findings in a patient of this age. Dictated by Dewey Cochran MD @ 11/01/2018 12:31:04 PM Please note that all CT scans at this facility use dose modulation, iterative reconstruction, and/or weight-based dosing when appropriate to reduce radiation dose to as low as reasonably achievable. Dictated by: Dewey Cochran MD @ 11/01/2018 12:31:12 (Electronically Signed)
== END 2018-11-01 12:55 | disposition home or self-care (01) ==
LOC: MW.ED 10:19
DX: G89.18 Other acute postprocedural pain (principal); R10.84 Generalized abdominal pain; Z90.89 Acquired absence of other organs; E66.9 Obesity, unspecified; Z68.30 Body mass index [BMI] 30.0-30.9, adult
CPT/HCPCS: 36415; 74177; 80053; 85025; 96361; 96374; 96375; 99284; J2270; J2405; J7040; Q9967

== ENCOUNTER 2018-11-11 19:06 | Emergency (ER) | payer SELFPAY ==
--- NOTE | 2018-11-11 19:43 | EDM.PDOC ---
ED HPI GENERAL MEDICAL PROBLEM - General Chief Complaint: Abdominal Pain Stated Complaint: PT HAS STOMACH PAIN Time Seen by Provider: 11/11/18 19:43 Source of Information: Reports: Patient History Limitations: Reports: No Limitations - History of Present Illness INITIAL COMMENTS - FREE TEXT/NARRATIVE: HISTORY AND PHYSICAL: History of present illness: Patient is a 28-year-old female presents to the ED with complaint of abdominal pain. She had an appendectomy with Dr. Miller on 10/31/18. She states she is having pain in her LLQ on and off. She called his office and told to take tylenol and if it didn't improve to come to the ED. She states she took one tab of Tylenol and did not have any improvement. She reports having 1 episode of diarrhea last night, last formed BM was 2 days ago. She is passing gas. She denies fevers, chills, nausea, vomiting, headache, chest pain, shortness of breath. Denies redness or drainage from surgical wounds. Review of systems: As per history of present illness and below otherwise all systems reviewed and negative. Past medical history: As per history of present illness and as reviewed below otherwise noncontributory. Surgical history: As per history of present illness and as reviewed below otherwise noncontributory. Social history: No reported history of drug or alcohol abuse. Family history: As per history of present illness and as reviewed below otherwise noncontributory. Physical exam: General: Patient sitting comfortably in no acute distress and nontoxic appearing HEENT: Atraumatic, normocephalic, pupils reactive, negative for conjunctival pallor or scleral icterus, mucous membranes moist, throat clear, neck supple, nontender, trachea midline. No meningeal signs. Lungs: Clear to auscultation, breath sounds equal bilaterally, chest nontender. Heart: S1S2, regular, negative for clicks, rubs, or overt murmur. Abdomen: Mild LLQ tenderness to palpation. There is a well healing 3cm incision in the suprapubic area as well as well healing 1cm incisions in the RLQ and umbilicus. No redness, drainage, fluctuance, induration, or tenderness to palpation. Soft, nondistended. Negative for masses or hepatosplenomegaly. Negative for costovertebral tenderness. No rigidity, rebound, guarding. Pelvis: Stable nontender. 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: Deferred. Rectal: Deferred. Extremities: Atraumatic, negative for cords or calf pain. Neurovascular unremarkable. Neuro: Awake, alert, oriented. Cranial nerves II through XII unremarkable. Cerebellum unremarkable. Motor and sensory unremarkable throughout. Exam nonfocal. Notes: Diagnostics: CBC, CMP, KUB Therapeutics: None Prescriptions: None Impression: Abdominal pain Plan: 1. Alternate tylenol and motrin as needed as discussed 2. Follow up with general surgeon 3. Return to ED as needed as discussed Definitive disposition and diagnosis as appropriate pending reevaluation and review of above. Right Middle Abdomen Pain Score (Numeric/FACES): 6 - Related Data Allergies Allergy/AdvReac Type Severity Reaction Status Date / Time No Known Allergies Allergy Verified 11/11/18 19:16 Home Meds: Home Meds . 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: Musculoskeletal History: Reports: None Neurological History: Reports: None Psychiatric History: Reports: None Endocrine/Metabolic History: Reports: Obesity/BMI 30+ Hematologic History: Reports: None Immunologic History: Reports: None Oncologic (Cancer) History: Reports: None Dermatologic History: Reports: None - Infectious Disease History Infectious Disease History: Reports: Chicken Pox - Past Surgical History GI Surgical History: Reports: Appendectomy Social & Family History - Family History Family Medical History: Noncontributory - Tobacco Use Smoking Status *Q: Never Smoker - Caffeine Use Caffeine Use: Reports: None - Recreational Drug Use Recreational Drug Use: No ED ROS GENERAL - Review of Systems Review Of Systems: ROS reveals no pertinent complaints other than HPI. ED EXAM, GI/ABD - Physical Exam Exam: See Below (see dictation) Course - Vital Signs Last Recorded V/S: Last Vital Signs Temp 97.1 F 11/11/18 19:16 Pulse 94 11/11/18 19:16 Resp 17 11/11/18 19:16 BP 116/71 11/11/18 19:16 Pulse Ox 97 11/11/18 19:16 - Orders/Labs/Meds Orders: Active Orders 24 hr Category Date Time Status MONONUCLEOSIS SCREEN [CHEM] Stat Lab 11/11/18 20:00 Stop Req Labs: Laboratory Tests 11/11/18 11/11/18 Range/Units 20:00 20:00 WBC 12.46 H (4.0-11.0) K/uL RBC 4.33 (4.30-5.90) M/uL Hgb 13.1 (12.0-16.0) g/dL Hct 38.5 (36.0-46.0) % MCV 88.9 (80.0-98.0) fL MCH 30.3 (27.0-32.0) pg MCHC 34.0 (31.0-37.0) g/dL RDW Std Deviation 42.2 (28.0-62.0) fl RDW Coeff of Daniella 13 (11.0-15.0) % Plt Count 267 (150-400) K/uL MPV 10.10 (7.40-12.00) fL Neut % (Auto) 77.4 (48.0-80.0) % Lymph % (Auto) 14.8 L (16.0-40.0) % [place] % (Auto) 7.0 (0.0-15.0) % Eos % (Auto) 0.6 (0.0-7.0) % Baso % (Auto) 0.2 (0.0-1.5) % Neut # (Auto) 9.7 H (1.4-5.7) K/uL Lymph # (Auto) 1.8 (0.6-2.4) K/uL [place] # (Auto) 0.9 H (0.0-0.8) K/uL Eos # (Auto) 0.1 (0.0-0.7) K/uL Baso # (Auto) 0.0 (0.0-0.1) K/uL Nucleated RBC % 0.0 /100WBC Nucleated RBCs # 0 K/uL Sodium 139 (136-145) mmol/L Potassium 3.6 (3.5-5.1) mmol/L Chloride 105 (98-107) mmol/L Carbon Dioxide 24.5 (21.0-32.0) mmol/L BUN 8 (7.0-18.0) mg/dL Creatinine 0.7 (0.6-1.0) mg/dL Est Cr Clr Drug Dosing 85.94 mL/min Estimated GFR (MDRD) > 60.0 ml/min Glucose 105 (74-106) mg/dL Calcium 9.0 (8.5-10.1) mg/dL Total Bilirubin 0.4 (0.2-1.0) mg/dL AST 12 L (15-37) IU/L ALT 32 (14-63) IU/L Alkaline Phosphatase 102 (46-116) U/L Total Protein 7.4 (6.4-8.2) g/dL Albumin 3.6 (3.4-5.0) g/dL Globulin 3.8 (2.6-4.0) g/dL Albumin/Globulin Ratio 0.9 (0.9-1.6) Departure - Departure Time of Disposition: 20:55 Disposition: Home, Self-Care 01 Condition: Good Clinical Impression: Abdominal pain Qualifiers: Abdominal location: right lower quadrant Qualified Code(s): R10.31 - Right lower quadrant pain - Discharge Information Referrals: PCP,None [Primary Care Provider] - Forms: ED Department Discharge Additional Instructions: The following information is given to patients seen in the emergency department who are being discharged to home. This information is to outline your options for follow-up care. We provide all patients seen in our emergency department with a follow-up referral. The need for follow-up, as well as the timing and circumstances, are variable depending upon the specifics of your emergency department visit. If you don't have a primary care physician on staff, we will provide you with a referral. We always advise you to contact your personal physician following an emergency department visit to inform them of the circumstance of the visit and for follow-up with them and/or the need for any referrals to a consulting specialist. The emergency department will also refer you to a specialist when appropriate. This referral assures that you have the opportunity for follow-up care with a specialist. All of these measure are taken in an effort to provide you with optimal care, which includes your follow-up. Under all circumstances we always encourage you to contact your private physician who remains a resource for coordinating your care. When calling for follow-up care, please make the office aware that this follow-up is from your recent emergency room visit. If for any reason you are refused follow-up, please contact the [facility] Emergency Department at and asked to speak to the emergency department charge nurse. [facility] [address], [place] [address] [address] 1. Alternate tylenol and motrin as needed as discussed 2. Follow up with general surgeon 3. Return to ED as needed as discussed - My Orders Last 24 Hours: My Active Orders 11/11/18 20:00 MONONUCLEOSIS SCREEN [CHEM] Stat - Assessment/Plan Last 24 Hours: My Active Orders 11/11/18 20:00 MONONUCLEOSIS SCREEN [CHEM] Stat
[2018-11-11 20:25] LABS: CHLORIDE,CL 105 mmol/L (98-107); SODIUM,NA 139 mmol/L (136-145)
--- NOTE | 2018-11-11 20:41 | CR ---
INDICATION: Abdominal pain. Recent appendectomy. COMPARISON: CT of the abdomen and pelvis from 11/01/2018 FINDINGS: Erect and supine films of the abdomen were obtained. In the abdomen, there is no sign of distention of the small bowel or colon to suggest obstruction or ileus. There is no sign of free air or distinct mass. The osseous structures are normal in appearance for the patient`s age. The lung bases are clear. There has been no interval change. IMPRESSION: Normal abdomen two views. Dictated by Rl Mckeon MD @ Nov 11 2018 8:39PM Signed by Dr. Rl Mckeon @ Nov 11 2018 8:40PM
== END 2018-11-11 21:10 | disposition home or self-care (01) ==
LOC: MW.ED 19:06
DX: R10.32 Left lower quadrant pain (principal); R10.31 Right lower quadrant pain
CPT/HCPCS: 36415; 74018; 74018-26; 80053; 85025; 99283; 99284-25

== ENCOUNTER 2018-11-14 05:16 | Emergency (ER) | payer SELFPAY ==
[2018-11-14] MEDS ORDERED: Ketorolac 60 MG/2 ML SDV IM ONE (05:31)
[2018-11-14] MEDS ORDERED: Ondansetron 4 MG Tab.DIS PO ONE (05:31)
--- NOTE | 2018-11-14 05:38 | EDM.PDOC ---
ED HPI GENERAL MEDICAL PROBLEM - General Chief Complaint: Gastrointestinal Problem Stated Complaint: ABDOMINAL PAIN Time Seen by Provider: 11/14/18 05:24 - History of Present Illness INITIAL COMMENTS - FREE TEXT/NARRATIVE: HISTORY AND PHYSICAL: History of present illness: The patient is a 28-year-old female who underwent a laparoscopic appendectomy here with Dr. Miller on October 31 and has had 2 visits since that time for abdominal pain and has also followed up with Dr. Miller on Friday of this past week and presents again with episodic spasms of right lower quadrant pain associated with nausea and some diarrhea. She has had the diarrhea on and off since the surgery and that is not new or different and it is not black or bloody. She's says that she had a subjective fever yesterday and she is not sure of the temp exact number but she just felt hot. She currently doesn't feel hot and says that the pain is manageable and is only a 4/10 but she says that it will occasionally increase and decrease in intensity and she would like to be evaluated. Her last CAT scan was on November 01 and she was also seen here in the emergency department on November 11 and had an x-ray of labs all of which were normal. The patient says that when she saw Dr. Miller in the clinic he had advised her just use [id number] Tylenol. The patient says she also called and spoke with Dr. Miller's nurse yesterday and she was again advised to Tylenol and [id number] meds and she took some ibuprofen this morning. She says she has been eating and drinking normally. She tells me that her incisions are doing well and healing nicely and the pain again in the right lower quadrant where it has been on all prior visits. Review of systems: As per history of present illness and below otherwise all systems reviewed and negative. Past medical history: As per history of present illness and as reviewed below otherwise noncontributory. Surgical history: As per history of present illness and as reviewed below otherwise noncontributory. Social history: No reported history of drug or alcohol abuse. Family history: As per history of present illness and as reviewed below otherwise noncontributory. Physical exam: General: Well-developed well-nourished female who is nontoxic and moves easily in the ED without distress or discomfort. Her vital signs are noted by me HEENT: Atraumatic, normocephalic, negative for conjunctival pallor or scleral icterus, mucous membranes moist, throat clear, neck supple, nontender, trachea midline. Lungs: Clear to auscultation, breath sounds equal bilaterally, chest nontender. Heart: S1S2, regular rate and rhythm on my evaluation and no overt murmurs Abdomen: Soft, nondistended, bowel sounds are hypoactive and there is some tympany on the upper abdomen and percussion. The patient has some tenderness in the right lower quadrant on deep palpation but no rebound or guarding. Incisions from her appendectomy are clean and dry and healing nicely without any erythema. Negative for masses or hepatosplenomegaly. Negative for costovertebral tenderness. Pelvis: Deferred 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: Deferred. Rectal: Deferred. Extremities: Atraumatic, pale edema and full range of motion without defects or deficits Neurovascular unremarkable. Neuro: Awake, alert, oriented. Cranial nerves II through XII unremarkable. Cerebellum unremarkable. Motor and sensory unremarkable throughout. Exam nonfocal. Diagnostics: CBC CMP lipase UA urine culture Therapeutics: Zofran ODT Toradol IM Impression: Episodic Right lower quadrant pain postoperative from laparoscopic appendectomy October 31; early UTI Definitive disposition and diagnosis as appropriate pending reevaluation and review of above. RLQ Pain Score (Numeric/FACES): 4 - Related Data Allergies Allergy/AdvReac Type Severity Reaction Status Date / Time No Known Allergies Allergy Verified 11/14/18 05:26 Home Meds: Home Meds . 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: Musculoskeletal History: Reports: None Neurological History: Reports: None Psychiatric History: Reports: None Endocrine/Metabolic History: Reports: Obesity/BMI 30+ Hematologic History: Reports: None Immunologic History: Reports: None Oncologic (Cancer) History: Reports: None Dermatologic History: Reports: None - Infectious Disease History Infectious Disease History: Reports: Chicken Pox - Past Surgical History Head Surgeries/Procedures: Reports: None GI Surgical History: Reports: Appendectomy Social & Family History - Family History Family Medical History: Noncontributory - Tobacco Use Smoking Status *Q: Never Smoker - Caffeine Use Caffeine Use: Reports: None - Recreational Drug Use Recreational Drug Use: No ED ROS GENERAL - Review of Systems Review Of Systems: ROS reveals no pertinent complaints other than HPI. ED EXAM, GENERAL - Physical Exam Exam: See Below (see dictation) Course - Vital Signs Last Recorded V/S: Last Vital Signs Temp 36.9 C 11/14/18 05:26 Pulse 102 H 11/14/18 05:26 Resp 14 11/14/18 05:26 BP 118/71 11/14/18 05:26 Pulse Ox 95 11/14/18 05:26 - Orders/Labs/Meds Orders: Active Orders 24 hr Category Date Time Status CULTURE URINE [RM] Stat Lab 11/14/18 05:35 Received Labs: Laboratory Tests 11/14/18 11/14/18 11/14/18 Range/Units 05:35 05:45 05:45 WBC 11.44 H (4.0-11.0) K/uL RBC 4.20 L (4.30-5.90) M/uL Hgb 12.9 (12.0-16.0) g/dL Hct 37.1 (36.0-46.0) % MCV 88.3 (80.0-98.0) fL MCH 30.7 (27.0-32.0) pg MCHC 34.8 (31.0-37.0) g/dL RDW Std Deviation 41.0 (28.0-62.0) fl RDW Coeff of Daniella 13 (11.0-15.0) % Plt Count 250 (150-400) K/uL MPV 9.80 (7.40-12.00) fL Neut % (Auto) 86.3 H (48.0-80.0) % Lymph % (Auto) 6.1 L (16.0-40.0) % [place] % (Auto) 7.2 (0.0-15.0) % Eos % (Auto) 0.2 (0.0-7.0) % Baso % (Auto) 0.2 (0.0-1.5) % Neut # (Auto) 9.9 H (1.4-5.7) K/uL Lymph # (Auto) 0.7 (0.6-2.4) K/uL [place] # (Auto) 0.8 (0.0-0.8) K/uL Eos # (Auto) 0.0 (0.0-0.7) K/uL Baso # (Auto) 0.0 (0.0-0.1) K/uL Nucleated RBC % 0.0 /100WBC Nucleated RBCs # 0 K/uL Sodium 138 (136-145) mmol/L Potassium 3.3 L (3.5-5.1) mmol/L Chloride 104 (98-107) mmol/L Carbon Dioxide 23.5 (21.0-32.0) mmol/L BUN 14 (7.0-18.0) mg/dL Creatinine 0.7 (0.6-1.0) mg/dL Est Cr Clr Drug Dosing 85.94 mL/min Estimated GFR (MDRD) > 60.0 ml/min Glucose 142 H (74-106) mg/dL Calcium 8.5 (8.5-10.1) mg/dL Total Bilirubin 0.5 (0.2-1.0) mg/dL AST 26 (15-37) IU/L ALT 31 (14-63) IU/L Alkaline Phosphatase 107 (46-116) U/L Total Protein 7.3 (6.4-8.2) g/dL Albumin 3.2 L (3.4-5.0) g/dL Globulin 4.1 H (2.6-4.0) g/dL Albumin/Globulin Ratio 0.8 L (0.9-1.6) Lipase 134 (73-393) U/L Urine Color YELLOW Urine Appearance SLT CLOUDY Urine pH 6.0 (5.0-8.0) Ur Specific [place] 1.025 (1.001-1.035) Urine Protein NEGATIVE (NEGATIVE) mg/dL Urine Glucose (UA) NEGATIVE (NEGATIVE) mg/dL Urine Ketones NEGATIVE (NEGATIVE) mg/dL Urine Occult Blood SMALL H (NEGATIVE) Urine Nitrite NEGATIVE (NEGATIVE) Urine Bilirubin NEGATIVE (NEGATIVE) Urine Urobilinogen 1.0 (<2.0) EU/dL Ur Leukocyte Esterase SMALL H (NEGATIVE) Urine RBC 0-3 (0-2/HPF) Urine WBC 0-5 (0-5/HPF) Ur Epithelial Cells FEW (NONE-FEW) Urine Bacteria FEW (NEGATIVE) Urinalysis Comment Meds: Medications Discontinued Medications Generic Name Dose Route Start Last Admin Trade Name Tania PRN Reason Stop Dose Admin Ketorolac Tromethamine 60 mg 11/14/18 05:31 11/14/18 05:45 Toradol IM 11/14/18 05:32 60 mg ONETIME ONE Administration Ondansetron HCl 4 mg 11/14/18 05:31 11/14/18 05:45 Zofran Odt PO 11/14/18 05:32 4 mg ONETIME ONE Administration Departure - Departure Time of Disposition: 06:14 Disposition: Home, Self-Care 01 Condition: Good Clinical Impression: Postoperative abdominal pain, UTI, Urinary tract infectious disease Abdominal pain Qualifiers: Abdominal location: right lower quadrant Qualified Code(s): R10.31 - Right lower quadrant pain - Discharge Information Referrals: Eugene Miller MD [Primary Care Provider] - Forms: ED Department Discharge Additional Instructions: The following information is given to patients seen in the emergency department who are being discharged to home. This information is to outline your options for follow-up care. We provide all patients seen in our emergency department with a follow-up referral. The need for follow-up, as well as the timing and circumstances, are variable depending upon the specifics of your emergency department visit. If you don't have a primary care physician on staff, we will provide you with a referral. We always advise you to contact your personal physician following an emergency department visit to inform them of the circumstance of the visit and for follow-up with them and/or the need for any referrals to a consulting specialist. The emergency department will also refer you to a specialist when appropriate. This referral assures that you have the opportunity for followup care with a specialist. All of these measure are taken in an effort to provide you with optimal care, which includes your followup. Under all circumstances we always encourage you to contact your private physician who remains a resource for coordinating your care. When calling for followup care, please make the office aware that this follow-up is from your recent emergency room visit. If for any reason you are refused follow-up, please contact the [facility] emergency department at and ask to speak to the emergency department charge nurse. [facility] [address] [place] [id number] Push hydration and use [id number] gas medications to help move the gas through bowel and prevent bloating and further pain. Please eat a diet rich in vegetables fruit and fiber to help keep your bowels regular and to promote healing. These connect with Dr. Miller in the clinic next week for further care and reevaluation and return to ER as needed and as discussed. Continue with symptomatic care at home for this pain including [id number] meds heat and ice. For the early urinary tract infection you have been given Cipro from [facility]. - My Orders Last 24 Hours: My Active Orders 11/14/18 05:35 CULTURE URINE [RM] Stat - Assessment/Plan Last 24 Hours: My Active Orders 11/14/18 05:35 CULTURE URINE [RM] Stat
[2018-11-14 06:11] LABS: CHLORIDE,CL 104 mmol/L (98-107); SODIUM,NA 138 mmol/L (136-145)
== END 2018-11-14 06:34 | disposition home or self-care (01) ==
LOC: MW.ED 05:16
DX: N39.0 Urinary tract infection, site not specified (principal); G89.18 Other acute postprocedural pain; Z90.89 Acquired absence of other organs
CPT/HCPCS: 36415; 80053; 81001; 83690; 85025; 87086; 96372; 99284; A9270; J1885